=== PATIENT | female | born 1980 | race Asian ===

== ENCOUNTER 2018-09-27 20:25 | Emergency (ER) | payer OTHER ==
[~2018-09-27] VITALS: Ht 175.3 cm; Wt 72.6 kg
[2018-09-27 20:37] VITALS: BP 102/66
== END 2018-09-27 23:16 | disposition home or self-care (01) ==
LOC: ER 20:25 → EDBD 20:25 → ER 23:16
DX: S33.5XXA Sprain of ligaments of lumbar spine, initial encounter (principal); M46.46 Discitis, unspecified, lumbar region; M79.18 Myalgia, other site; Z88.0 Allergy status to penicillin; W19.XXXA Unspecified fall, initial encounter; Y93.23 Activity, snow (alpine) (downhill) skiing, snowboarding, sledding, tobogganing and snow tubing; Y92.89 Other specified places as the place of occurrence of the external cause; Y99.8 Other external cause status
CPT/HCPCS: 72131